=== PATIENT | male | born 1990 | race Caucasian/White ===

== ENCOUNTER 2018-03-31 21:45 | Outpatient (REF) | payer MEDICARE, MEDICAID, SELFPAY ==
[2018-03-31 22:06] LABS: Abs Immature Grans 0.01 k/cumm (0.0-0.09); Absolute Basophil Count 0.03 k/cumm (0.0-0.2); Absolute Eosinophil Count 0.11 k/cumm (0.0-0.7); Absolute Monocyte Count 0.66 k/cumm (0.11-0.7); Absolute Neutrophil Count 4.09 k/cumm (1.2-6.7); Basophils % 0.4; Eosinophils % 1.6; HGB 15.2 g/dL (13.5-17.5); Immature Grans % 0.1; Mean Corp. HGB Concentration 33.8 g/dL (32.0-36.0); Mean Corpuscular Hemoglobin 31.1 pg (27.0-33.0); Mean Platelet Volume 11.4 fL (8.0-11.0); Monocytes % 9.6; Neutrophils % 59.3; Platelet Count 242 x1000/uL (130-400); RBC 4.89 m/cumm (4.50-6.00); RBC Distribution Width 12.2 % (11.8-14.1)
[2018-03-31 22:37] LABS: ALT 55 U/L (12-78); AST 24 U/L (15-37); Albumin 3.7 g/dL (3.4-5.0); Alkaline Phosphatase 64 U/L (46-116); Anion Gap 8.5 mmol/L (3-11); BUN 7 mg/dL (7-18); Bilirubin, Total 0.4 mg/dL (0.2-1.0); CO2 26.5 mmol/L (21.0-32.0); CREATININE 0.81 mg/dL (0.70-1.30); Calcium 8.8 mg/dL (8.5-10.1); Chloride 105 mmol/L (98-107); Glucose 73 mg/dL (70-100); Potassium 4.5 mmol/L (3.5-5.1); Sodium 140 mmol/L (136-145); Total Protein 7.1 g/dL (6.4-8.2)
[2018-04-02 13:23] LABS: Hepatitis C Ab w Rflx HCV PCR Reactive (NEGAT)
== END 2018-03-31 22:05 ==
LOC: NCHCN 21:45
PROVIDERS: PCP Internal Medicine; Referring Provider Internal Medicine; Visit Provider Internal Medicine
DX: B19.20 Unspecified viral hepatitis C without hepatic coma (principal); F11.21 Opioid dependence, in remission
CPT/HCPCS: 80053; 86803; 85025; 87521; 87522

== ENCOUNTER 2018-04-17 08:25 | Emergency (ER) | payer MEDICARE, MEDICAID, SELFPAY ==
[2018-04-17] VITALS (7 sets, daily range): BP systolic 122–130; BP diastolic 66–99; PULSE 80–93; RESP 1–18; TEMP 36.6–37.1; O2SAT 95–98
[2018-04-17] MEDS: predniSONE 20 MG TAB 60 MG (08:40)
[2018-04-17] MEDS: Albuterol/Ipratropium 3 ML UPD VIAL (08:40)
--- NOTE | 2018-04-17 08:43 | ED.GENADUL_ITS ---
Discharge Plan Disposition Patient Disposition: HOME Condition: Improving Discharge Details Chief Complaint: RespSymp Clinical Impression: Acute bronchitis Primary Care Provider: Talon Watt ED Provider: Kami Fleming Home Meds and New Rx's Prescriptions: New prednisone 50 mg tablet 50 mg PO DAILY 5 Days Qty: 5 RF: 0 azithromycin [Zithromax Z-Dipak] 250 mg tablet See Label Instructions .ROUTE .COMPLEX Qty: 6 RF: 0 benzonatate [Tessalon Perles] 100 mg capsule 100 mg PO TID PRN (Reason: cough) Qty: 10 RF: 0 Continue ibuprofen [Ibuprofen IB] 200 mg Tablet 600 mg PO QID PRNRF: 0 Discharge Instructions Instructions: Acute Bronchitis (ED) Additional Instructions: Alternate Tylenol and Motrin as needed and directed for pain. Take the steroids until finished. Use the inhaler and cough medicine as needed and directed. If you have no improvement or worsening of symptoms in the next 2-3 days, you may start the antibiotics. Follow-up with your primary care doctor in 1 week for reevaluation. Return to the emergency department with any worsening or new concerning symptoms. Discharge Data Discharge Physician: Kami Fleming Medical Decision Making 28-year-old male who presents with cough and chest congestion with shortness of breath for the past 3 days. Denies known fever. Patient appears nontoxic, airway intact and speaking in full sentences. Oxygen saturation 93-95% on room air. Afebrile. He has minimal scattered wheezing with rhonchi throughout. No evidence of findings on exam consistent with strep. Consistent with bronchitis. Will give a neb treatment and a dose of p.o. steroids and reassess. 0905 -- Pt states he feels better but still with some shortness of breath. Nurse states after duoneb, pt asked for food and drink. Breath sounds improved. Will give another neb. 0955 --patient states he feels better and is requesting to go home. We will send home with an inhaler. Will give prescription for prednisone, Tessalon Perles. Discussed with patient that this is likely viral and if no relief with steroids and cough medicine over the next 2-3 days, he may start the prescription for Zithromax. He is instructed on the importance of quitting smoking as this will cause his illness to persist or worsen. Instructed to follow-up with primary care doctor in 1 week for reevaluation and to return here immediately if worse. HPI General Mode of arrival: ambulatory . Date/Time Provider Initiated Documentation: 04/17/18 08:41 . Limitations to Documentation: no limitations . Information obtained by: patient . HPI Narrative: Patient is a 28-year-old male who presents to the ED with complaint of cough with chest congestion for the past 3 days. Patient states he has been coughing up phlegm but he is unsure of the color. He also admits to wheezing, shortness of breath and sore throat. He denies fever, nasal congestion, facial pain, neck pain, leg pain, leg swelling, recent travel or recent surgeries. Patient states he has been taking ibuprofen and Tylenol with some relief, but none today. He used a nebulizer treatment of his friends last night but without relief. He admits to occasional headache but none at present. He states he has been drinking well but eating less than usual. Past medical history: Anxiety Surgical history: Facial reconstruction due to dog bite Social history: Smokes tobacco, Smokes marijuana daily Meds: None Allergies: Bee sting, NKDA PCP: Dr. Watt Related Data Home Medications Medication Instructions Recorded Confirmed azithromycin [Zithromax Z-Dipak] See Label Instructions .ROUTE 04/17/18 .COMPLEX #6 tab benzonatate [Tessalon Perles] 100 mg PO TID PRN #10 cap 04/17/18 ibuprofen [Ibuprofen IB] 600 mg PO QID PRN 04/17/18 04/17/18 prednisone 50 mg PO DAILY 5 Days #5 tab 04/17/18 Previous Rx's Medication Instructions Recorded azithromycin [Zithromax Z-Dipak] See Label Instructions .ROUTE 04/17/18 .COMPLEX #6 tab benzonatate [Tessalon Perles] 100 mg PO TID PRN #10 cap 04/17/18 prednisone 50 mg PO DAILY 5 Days #5 tab 04/17/18 Allergies Allergy/AdvReac Type Severity Reaction Status Date / Time venom-honey bee Allergy Severe Anaphylaxsi Unverified 04/17/18 08:44 [bee venom (honey bee)] s General Stated Complaint: RespSymp MELANIE: 3 Review of Systems Review of Systems All systems reviewed & are unremarkable except as noted in HPI and below Constitutional Denies chills, Denies excessive sweating, Denies fatigue, Denies fever(s), Denies weakness and Denies weight loss Eyes Reports system reviewed and no additional complaints, except as docu and Denies blurry vision ENT Denies vertigo, Denies dizziness, Denies otalgia, Denies nasal congestion, Reports sore throat and Denies throat swelling Cardiovascular Denies chest pain, Denies syncope, Denies rapid heart rate and Reports dyspnea Respiratory Reports chest congestion, Reports cough and Reports dyspnea Gastrointestinal Denies abdominal pain, Denies diarrhea and Denies vomiting Genitourinary Denies hematuria, Denies dysuria and Denies flank pain Musculoskeletal Denies back pain and Denies joint swelling Integumentary/Breasts Denies lesions and Denies rash Neurologic Denies behavioral changes, Denies confusion, Denies vertigo, Denies dizziness, Denies syncope and Denies weakness Psychiatric Denies behavioral changes, Denies confusion and Denies depression Endocrine Denies excessive sweating and Denies fatigue Hematologic/Lymphatic Denies easy bruising and Denies lymphadenopathy Allergic/Immunologic Denies throat swelling PFS Social History Smoking/Tobacco Use Status: Current every day Exam Const General: cooperative and healthy appearing Orientation: alert and awake HENNE Head: normal to inspection Ears: hearing grossly normal bilaterally, external ears normal and TM's normal bilaterally General nose exam: external nose normal Face and sinus: normal facial exam and no sinus tenderness Mouth: oral mucosae normal Teeth and gingiva: dentition normal Throat: posterior oropharynx normal, uvula midline and no peritonsillar masses Eyes General: appearance normal, both eyes and all related structures Eyelids: eyelids normal Pupils: PERRL EOM: EOM intact bilaterally Neck Neck: normal visual inspection Lymphatic: no lymphadenopathy noted Chest Chest: normal inspection of the chest Resp Effort & Inspection: normal respiratory effort, able to speak in complete sentences, no respiratory distress, no retractions, no stridor and no use of accessory muscles Auscultation: rhonchi and wheezes scattered wheezes Cardio Rate: regular rate Rhythm: regular rhythm GI Inspection: normal to inspection Palpation: soft, not firm, no guarding, no hepatosplenomegaly, no masses and nontender Auscultation: normal bowel sounds Skin General skin exam: no rashes or lesions noted Neuro General: alert and awake Cognition: normal cognition Speech: speech normal Gait: normal gait Motor: muscle tone normal throughout Sensory Exam: no sensory deficits noted Extrem General: normal to inspection, full ROM, normal capillary refill, no calf tenderness and no edema Psych Appearance: grossly normal Mental Status: mental status grossly normal Speech and Movement: speech and movement normal Affect: normal affect Thought Process: normal Course Vital Signs Temperature 97.9 F 04/17/18 08:31 Pulse 93 H 04/17/18 08:31 Respiratory Rate 18 04/17/18 08:31 Blood Pressure 122/99 H 04/17/18 08:31 Pulse Oximetry 95 04/17/18 08:31 Temperature 97.9 F 04/17/18 08:31 Temperature Source Temporal Artery Scan 04/17/18 08:31 Pulse 93 H 04/17/18 08:31 Respiratory Rate 18 04/17/18 08:31 Respiratory Effort 04/17/18 08:35 Blood Pressure 122/99 H 04/17/18 08:31 Blood Pressure Position Sitting 04/17/18 08:31 Pulse Oximetry 95 04/17/18 08:31 Oxygen Delivery Method Room Air 04/17/18 08:31 Oxygen Flow Rate 0 04/17/18 08:31 Pain Level 8 04/17/18 08:31
[2018-04-17] MEDS: Albuterol 2.5 MG/3 ML INH SOLN VIAL UPD (09:10)
[2018-04-17] MEDS: Albuterol HFA 8 GM 60 PUFF INH IH (10:11)
[2018-04-17] MEDS: Inhaler, Assist Device 1 EACH MC (10:11)
== END 2018-04-17 10:20 | disposition home or self-care (01) ==
PROVIDERS: Emergency Provider Physician Assistant; PCP Internal Medicine
DX: J20.9 Acute bronchitis, unspecified (principal); F17.210 Nicotine dependence, cigarettes, uncomplicated
CPT/HCPCS: 94640; 99284; J7512; J7613; J7620

== ENCOUNTER 2018-06-06 14:05 | Emergency (ER) | payer MEDICARE, MEDICAID, SELFPAY ==
[2018-06-06] VITALS (42 sets, daily range): BP systolic 123–149; BP diastolic 61–93; PULSE 74–129; RESP 18–24; TEMP 37.3–38.6; O2SAT 94–100
--- NOTE | 2018-06-06 14:13 | DI.COMBO_ITS ---
SYMPTOM/DIAGNOSIS: RT LOWER CHEST PAIN, RUQ AND RLQ PAIN FRONTAL AND LATERAL CHEST: Comparison is made with 05/09/10. Heart size and pulmonary vasculature are within normal limits. The left lung is clear. There is an opacity seen in the right mid lung. There is also a small right pleural effusion. There is elevation of the right hemidiaphragm. The bones are intact. IMPRESSION: Right mid lung opacity which may represent pneumonia. A follow up chest xray to document complete resolution is recommended. Small right pleural effusion. ABDOMEN AND PELVIC CT: CT scan of the abdomen and pelvis was performed following the uneventful administration of intravenous contrast material. There are infiltrates seen in the right mid lung and the right lower lobe. There is a small right pleural effusion. The liver, spleen, pancreas, gallbladder, bile ducts and adrenal glands are unremarkable. The kidneys, ureters and bladder are unremarkable. The reproductive organs are unremarkable as visualized. The bowel shows no evidence of obstruction or inflammation. There is a normal appendix present. No significant abdominal or pelvic adenopathy, ascites or pneumoperitoneum is present. The abdominal aorta is of normal caliber. No acute osseous abnormality is identified. IMPRESSION: Right lung infiltrate which may represent pneumonia. Small right pleural effusion.
--- NOTE | 2018-06-06 14:26 | ED.GENADUL_ITS ---
Discharge Plan Disposition Patient Disposition: HOME Condition: Good Discharge Details Chief Complaint: Abd Prob Clinical Impression: Community acquired pneumonia, Acute dehydration, Fever, Rib pain on right side Primary Care Provider: Talon Watt ED Provider: Marcellus Cotton Home Meds and New Rx's Prescriptions: New azithromycin 250 mg tablet 250 mg PO DAILY 4 Days Qty: 4 RF: 0 acetaminophen [Mapap Extra Strength] 500 MG tablet 1,000 mg PO Q6H 5 Days Qty: 60 RF: 0 lidocaine [Lidoderm] 1 PATCH patch 1 patch Topical Q24H Qty: 4 RF: 0 ibuprofen [Motrin IB] 200 MG tablet 600 mg PO Q6H 5 Days Qty: 60 RF: 0 Discharge Instructions Instructions: Fever in Adults (ED), Community Acquired Pneumonia (ED) Additional Instructions: Please take medications as directed. Please follow-up immediately with your primary care provider for reassessment. If you notice any worsening of your symptoms, or any new symptoms such as vomiting, diarrhea, fever, chills, shortness of breath, chest pain, numbness, weakness, or fainting , please return immediately to the emergency department for reevaluation. Please follow up with your primary care provider as soon as possible for reassessment and reevaluation. As always, it was a pleasure participating in your medical care today. Referrals: Talon Watt MD [Primary Care Provider] - Discharge Data Discharge Date/Time-TO BE ENTERED AT DEPARTURE: 06/06/18 18:26 Medical Decision Making This is a pleasant 28-year-old male who presents for right upper quadrant abdominal pain for the last 2 weeks, but notably worsening over the last 2 days. He has no associated vomiting or diarrhea. Tenderness is notable for the right lower and right upper quadrants as well as over the right ribs. Voluntary guarding is notable on exam. Vital signs demonstrate fever. No significant tachycardia. He is an IV drug user. No murmurs are auscultated on exam or evidence of Osler nodes or Janeway lesions. We will perform a laboratory evaluation, hydrate the patient, control his fever, get a CT scan to evaluate for any acute abdominal process. Differential is broad and includes hepatic abscess, gallbladder pathology, atypical appendicitis. EKG 14: 24 Rate 82, intervals normal, sinus rhythm, no ST elevations or depressions, inverted T wave in V1, and lead III. No prominent Q waves, no other significant abnormalities. CT IMPRESSION: 1. Areas of infiltrate within the inferior right lung with small right pleural fluid collection. 2. No acute intra-abdominal or pelvic process. CXR IMPRESSION: Infiltrate within the lateral right mid lung zone with small right pleural fluid collection. CT scan and chest x-ray have returned and demonstrates evidence of infiltrate in the right midlung zone. This is near the location of his previous scar from his rib removal for his reconstructive surgery. The patient's pain is notably improved at this time, and on reassessment with more careful delineation it appears that his pain is not actually in the right upper abdomen but actually more so in the right chest over where the scar is. This correlates well with a CT and x-ray findings. It also makes sense with his lack of vomiting, diarrhea , and ability to tolerate p.o. well. Although the patient's initial lactate was elevated a repeat lactate has plummeted down to a very normal 0.7. Patient does have an elevated white count, a small amount of left shift, but no bandemia. Patient's vital signs are very reassuring, his fever has improved, he still shows no signs of tachycardia, with a normal blood pressure normal O2 sats and normal respirations. We did get the patient up and ambulated him around the department and he continued to demonstrate normal vital signs. I feel at this time on reassessment his signs and symptoms correlate well with an atypical community-acquired pneumonia with his relative bradycardia in light of his fever, as well as his imaging studies findings. Patient was initially given broad-spectrum antibiotics here, atypical coverage was added here. With normal reassuring vital signs, notable improvement of his symptoms, complete resolution of his elevated lactate, otherwise benign laboratory workup I feel that he can be safely discharged home with close follow-up. We will give the patient a prescription for azithromycin, we discussed in length red flags for which to return. His curb 65 score is 0, and he is in the lowest risk group, with recommendation for outpatient management which I do think is reasonable. I discussed this plan with the patient he too agrees with like to go home rather than staying for admission. We discussed reasons for return the patient understands. I have extensively reviewed the treatment plan and discharge instructions with the patient and their family. I have addressed all patient concerns at this time. The patient and family was made aware of what symptoms to monitor for that would warrant a return to the emergency department. Discussed the plan with the patient and family, they demonstrate verbal understanding and agreement with our assessment and plan at this time. HPI General Date/Time Provider Initiated Documentation: 06/06/18 14:12 . HPI Narrative: This is a pleasant 28-year-old male with a past medical history of hepatitis C, IV illicit drug use, and facial reconstruction surgery after a dog bite as a young child, who presents today for evaluation of right upper quadrant abdominal pain. The patient states that for the last 2 weeks he has had a mild to moderate right upper quadrant abdominal pain. He has noticed that over the last 2 days ago that it is gotten progressively worse , it is now relatively severe. It is worsened with palpation, deep breathing, and movement. It is improved with heat, he has no associated symptoms of nausea vomiting or diarrhea. Last meal was last night which was [place] food. He denies any hematemesis, hematochezia, melena or acholic stool. Patient does admit to using needles regularly for IV drug use, most recent being within the last few days, he states that his needles are not always clean. Patient does admit to fever and chills at home. He denies any pain or symptoms like this in the past. He denies any significant abdominal surgeries. He denies any pertinent family history. He has no other complaints at this time. Related Data Home Medications Medication Instructions Recorded Confirmed acetaminophen [Mapap Extra 1,000 mg PO Q6H 5 Days #60 tab 06/06/18 Strength] azithromycin 250 mg PO DAILY 4 Days #4 tab 06/06/18 ibuprofen [Motrin Ib] 600 mg PO Q6H 5 Days #60 tab 06/06/18 lidocaine [Lidoderm] 1 patch TOPICAL Q24H #4 patch 06/06/18 Previous Rx's Medication Instructions Recorded acetaminophen [Mapap Extra 1,000 mg PO Q6H 5 Days #60 tab 06/06/18 Strength] azithromycin 250 mg PO DAILY 4 Days #4 tab 06/06/18 ibuprofen [Motrin Ib] 600 mg PO Q6H 5 Days #60 tab 06/06/18 lidocaine [Lidoderm] 1 patch TOPICAL Q24H #4 patch 06/06/18 Allergies Allergy/AdvReac Type Severity Reaction Status Date / Time venom-honey bee Allergy Severe Anaphylaxsi Unverified 06/06/18 14:16 [bee venom (honey bee)] s General Stated Complaint: Abd Prob MELANIE: 2 Review of Systems Review of Systems All systems reviewed & are unremarkable except as noted in HPI and below PFSH Social History Smoking/Tobacco Use Status: Current every day Exam Narrative Exam Narrative: 1.Const: Well-nourished, Well-developed, appearing stated age 2.Eyes: PERRL, no conjunctival injection, and symmetrical lids. 3.ENT: Notable previous scars over the face secondary to previous trauma. Moist MM. Neck: Symmetric, trachea midline, No thyromegaly. 4.CVS: +S1/S2, No murmurs is appreciated or gallops. Peripheral pulses 2+ and equal in all extremities. Brisk capillary refill in all extremities. 5.RESP: Unlabored respiratory effort, however secondary to his abdominal/rib pain he is taking short shallow breaths. Mild reproducible tenderness over his right ribs by the scar for his rib removal for his previous bone grafts. Clear to auscultation bilaterally except for minimal crackles on the right. 6.GI: Abdomen demonstrates voluntary guarding, mild to moderate tenderness in the right upper quadrant right lower quadrant. No significant guarding or rebound or tenderness for the left lower left upper quadrant. No hepatomegaly appreciable at this time. Bowel sounds are present but reduced. 7.MSK: Normocephalic/Atraumatic, Extremities w/o deformity or ttp No cyanosis or clubbing, Normal movement of all extremities. 8.Skin: Warm, Dry. No rashes or lesions. No evidence of Osler nodes or Janeway lesions 9.Neuro: office director II-XII grossly intact. Sensation grossly intact, no focal neurologic deficits. 10.Psych: (AAO) x3. Appropriate mood and affect Course Vital Signs Temperature 38.6 C H 06/06/18 14:10 Pulse 88 06/06/18 14:10 Respiratory Rate 24 06/06/18 14:10 Blood Pressure 149/83 H 06/06/18 14:10 Pulse Oximetry 100 06/06/18 14:10 Temperature 38.6 C H 06/06/18 14:10 Temperature Source Temporal Artery Scan 06/06/18 14:10 Pulse 88 06/06/18 14:10 Respiratory Rate 24 06/06/18 14:10 Respiratory Effort Non-Labored 06/06/18 14:14 Blood Pressure 149/83 H 06/06/18 14:10 Blood Pressure Position Sitting 06/06/18 14:10 Pulse Oximetry 100 06/06/18 14:10 Oxygen Delivery Method Room Air 06/06/18 14:10 Oxygen Flow Rate 0 06/06/18 14:10 Pain Level 8 06/06/18 14:10 Lab/Test Results Lab/Test Results: 06/06/18 14:13 Blood Blood Culture - Pending 06/06/18 14:13 Blood Blood Culture - Pending
[2018-06-06] MEDS: Normal Saline 1,000 ML 1000 ML IV ×2 (14:35→15:10)
[2018-06-06 14:43] LABS: Lactate-non-spesis 2.6 mmol/L (0.6-1.4)
[2018-06-06] MEDS: Ketorolac 30 MG/ML VIAL IVP (14:43)
[2018-06-06] MEDS: MORPHine 10 MG/ML VIAL 4 MG IVP (14:44)
[2018-06-06 14:48] LABS: Abs Immature Grans 0.03 k/cumm (0.0-0.09); Absolute Basophil Count 0.01 k/cumm (0.0-0.2); Basophils % 0.1; Eosinophils % 1.3; HCT 38.9 % (40.0-50.0); HGB 13.1 g/dL (13.5-17.5); Immature Grans % 0.2; Lymphocytes % 6.7; Mean Corp. HGB Concentration 33.7 g/dL (32.0-36.0); Mean Corpuscular Hemoglobin 31.2 pg (27.0-33.0); Mean Corpuscular Volume 92.6 fL (80-95); Mean Platelet Volume 10.6 fL (8.0-11.0); Monocytes % 7.1; Neutrophils % 84.6; Platelet Count 233 x1000/uL (130-400); RBC Distribution Width 12.4 % (11.8-14.1); White Blood Cell Count 14.27 k/cumm (4.4-10.8)
[2018-06-06 14:53] LABS: Absolute Eosinophil Count 0.19 k/cumm (0.0-0.7); Absolute Lymphocyte Count 0.96 k/cumm (1.2-3.4); Absolute Monocyte Count 1.01 k/cumm (0.11-0.7); Absolute Neutrophil Count 12.07 k/cumm (1.2-6.7)
[2018-06-06 15:02] LABS: INR 1.1 (1.0-3.5); PTT Activated 28.8 sec (21.0-31.4)
[2018-06-06 15:11] LABS: Bilirubin Small (Negative); Blood Negative (Negative); Clarity Clear; Glucose Negative (Negative); Ketones Trace mg/dL (Negative); Leukocyte Esterase Negative (Negative); Nitrite Negative (Negative); Specific Gravity 1.025 (1.005-1.025); Urobilinogen >=8.0 EU/dL (Up TO 0.2)
[2018-06-06 15:15] LABS: ALT 39 U/L (12-78); AST 32 U/L (15-37); Alkaline Phosphatase 73 U/L (46-116); Anion Gap 7.2 mmol/L (3-11); BUN 6 mg/dL (7-18); Bilirubin, Direct 0.39 mg/dL (0.00-0.20); CO2 27.8 mmol/L (21.0-32.0); CREATININE 0.87 mg/dL (0.70-1.30); Chloride 98 mmol/L (98-107); Glucose 152 mg/dL (70-100); Potassium 3.9 mmol/L (3.5-5.1); Sodium 133 mmol/L (136-145); Total Protein 7.5 g/dL (6.4-8.2)
[2018-06-06 15:16] LABS: Lipase 94 U/L (73-393); Troponin I < 0.02 ng/mL (0.00-0.06)
[2018-06-06 15:21] LABS: Bacteria Few HPF (Negative); C & S Indicated? No; Casts Negative LPF (Negative); Crystals Negative HPF (Negative); Epithelial Cells Rare HPF (Negative); Mucus Moderate (Negative); Other Cells Negative (Negative); RBC Negative (0-2); WBC 0-2 HPF (0-5)
[2018-06-06] MEDS: Omnipaque 350 MG/ML 100 ML BTL IJ (15:28)
[2018-06-06] MEDS: PIPERACILLIN/TAZO 3.375 GM in Normal Saline 50 ML IVPB (15:36)
--- NOTE | 2018-06-06 16:03 | DI.VRAD_ITS ---
EXAM: CT Abdomen and Pelvis With Intravenous Contrast EXAM DATE/TIME: 06/06/2018 2:19 PM CLINICAL HISTORY: 28 years old, male; Pain; Abdominal pain; Localized; Right; Patient HX: Rlq and ruq pain, severe, no vomiting TECHNIQUE: Axial computed tomography images of the abdomen and pelvis with intravenous contrast. Coronal and sagittal reformatted images were created and reviewed. COMPARISON: No relevant prior studies available. FINDINGS: Lower thorax: Areas of infiltrate within the inferior right lung with small right pleural fluid collection. Minimal posterior right lower lobe compressive atelectasis. ABDOMEN: Liver: Normal. No mass. Gallbladder and bile ducts: Normal. No calcified stones. No ductal dilation. Pancreas: Normal. No ductal dilation. Spleen: Normal. No splenomegaly. Adrenals: Normal. No mass. Kidneys and ureters: Normal. No hydronephrosis. Stomach and bowel: Normal. No obstruction. No mucosal thickening. Appendix: Normal appendix. PELVIS: Bladder: Unremarkable as visualized. Reproductive: Unremarkable as visualized. ABDOMEN and PELVIS: Intraperitoneal space: Normal. No free air. No significant fluid collection. Bones/joints: No acute fracture. No dislocation. Soft tissues: Unremarkable. Vasculature: Normal. No abdominal aortic aneurysm. Lymph nodes: Normal. No enlarged lymph nodes. IMPRESSION: 1. Areas of infiltrate within the inferior right lung with small right pleural fluid collection. 2. No acute intra-abdominal or pelvic process. Dictated and Authenticated by: Jignesh De La Torre MD. Ordering:VICKI MARTIN MD
--- NOTE | 2018-06-06 16:04 | DI.VRAD_ITS ---
EXAM: XR Chest, 2 Views EXAM DATE/TIME: 06/06/2018 2:20 PM CLINICAL HISTORY: 28 years old, male; Chest pain; Right-sided chest pain; Right lower chest pain TECHNIQUE: XR of the chest, 2 views. COMPARISON: No relevant prior studies available. FINDINGS: Lungs: The left lung is clear. Infiltrate within the lateral right mid lung zone. Pleural space: Small right pleural fluid collection. Heart/Mediastinum: Unremarkable. No cardiomegaly. Bones/joints: Unremarkable. IMPRESSION: Infiltrate within the lateral right mid lung zone with small right pleural fluid collection. Dictated and Authenticated by: Jignesh De La Torre MD. Ordering:VICKI MARTIN MD
[2018-06-06] MEDS: Normal Saline 1,000 ML 150 ML IV (16:07)
[2018-06-06] MEDS: VANCOMYCIN 1,500 MG in Normal Saline 500 ML 333.3333 MG IVPB (16:08)
[2018-06-06] MEDS: Azithromycin 250 MG TAB 500 MG PO (17:01)
[2018-06-06 17:26] LABS: Lactate-non-spesis 0.7 mmol/L (0.6-1.4)
[2018-06-06] MEDS: Lidocaine 5% Patch 1 PATCH (18:20)
== END 2018-06-06 18:26 | disposition home or self-care (01) ==
PROVIDERS: Emergency Provider Student in an Organized Health Care Education/Training Program; PCP Internal Medicine
DX: R10.11 Right upper quadrant pain (principal); R07.81 Pleurodynia; J18.9 Pneumonia, unspecified organism; E86.0 Dehydration; F11.20 Opioid dependence, uncomplicated; F17.210 Nicotine dependence, cigarettes, uncomplicated
CPT/HCPCS: 36415; 80053; 83690; 87040; 93005; 96361; 96365; 96366; 96367; 96375; 99285; 71046; 74177; 81003; 81015; 82248; 83605; 84484; 85025; 85610; 85730; 93010; J1885; J2270; J2543; J3490

== ENCOUNTER 2018-11-27 09:08 | Outpatient (CLI) | payer MEDICARE, MEDICAID, SELFPAY ==
[2018-11-27 10:33] LABS: ALT 14 U/L (12-78); AST 11 U/L (15-37); Albumin 3.6 g/dL (3.4-5.0); Alkaline Phosphatase 95 U/L (46-116); Anion Gap 11.2 mmol/L (3-11); BUN 9 mg/dL (7-18); Bilirubin, Total 0.3 mg/dL (0.2-1.0); CO2 27.8 mmol/L (21.0-32.0); CREATININE 0.97 mg/dL (0.70-1.30); Chloride 102 mmol/L (98-107); Glucose 100 mg/dL (70-100); Potassium 4.2 mmol/L (3.5-5.1); Sodium 141 mmol/L (136-145); Total Protein 7.2 g/dL (6.4-8.2)
[2018-11-30 14:30] LABS: HCV RNA Detection Quantitative Undetected IU/mL (UNDECT)
== END 2018-11-27 09:28 ==
PROVIDERS: PCP Internal Medicine; Visit Provider Physician Assistant Medical
DX: B18.2 Chronic viral hepatitis C (principal)
CPT/HCPCS: 36415; 80053; 87522

== ENCOUNTER 2019-01-08 15:46 | Outpatient (REF) | payer MEDICARE, MEDICAID, SELFPAY ==
[2019-01-08 21:31] LABS: ALT 14 U/L (12-78); AST 13 U/L (15-37); Albumin 3.6 g/dL (3.4-5.0); Alkaline Phosphatase 72 U/L (46-116); Bilirubin, Total 0.3 mg/dL (0.2-1.0)
[2019-01-08 21:42] LABS: Bilirubin, Direct 0.09 mg/dL (0.00-0.20)
[2019-01-11 13:29] LABS: HCV RNA Detection Quantitative Undetected IU/mL (UNDECT)
== END 2019-01-08 16:06 ==
LOC: NCHCN 15:46
PROVIDERS: PCP Internal Medicine; Visit Provider Internal Medicine
DX: B19.20 Unspecified viral hepatitis C without hepatic coma (principal); F90.9 Attention-deficit hyperactivity disorder, unspecified type
CPT/HCPCS: 80076; 87522

== ENCOUNTER 2019-07-22 21:59 | Outpatient (REF) | payer MEDICARE, MEDICAID, SELFPAY ==
[2019-07-28 05:12] LABS: Amphetamine Negative ng/mL (Cutoff: 25); Amphetamines Interpretation Negative.; MDA (Ecstasy Metabolite) Negative ng/mL (Cutoff: 25); MDMA (Ecstasy) Negative ng/mL (Cutoff: 25); Methamphetamine Negative ng/mL (Cutoff: 25); Phentermine Negative ng/mL (Cutoff: 25); Pseudoephedrine/Ephedrine Negative ng/mL (Cutoff: 25)
[2019-08-03 13:45] LABS: Methylphenidate NEGATIVE; Ritalinic Acid NEGATIVE
== END 2019-07-22 22:19 ==
LOC: NCHCN 21:59
PROVIDERS: PCP Internal Medicine; Visit Provider Internal Medicine
DX: F11.10 Opioid abuse, uncomplicated (principal); Z79.899 Other long term (current) drug therapy
CPT/HCPCS: 80324; 80360

== ENCOUNTER 2019-09-16 18:53 | Outpatient (REF) | payer MEDICARE, MEDICAID, SELFPAY ==
[2019-09-16 20:40] LABS: ALT 12 U/L (16-63); AST 13 U/L (15-37); Albumin 3.7 g/dL (3.4-5.0); Alkaline Phosphatase 61 U/L (46-116); Anion Gap 7.4 mmol/L (3-11); BUN 6 mg/dL (7-18); Bilirubin, Total 0.4 mg/dL (0.2-1.0); CO2 28.6 mmol/L (21.0-32.0); CREATININE 0.86 mg/dL (0.70-1.30); Calcium 8.2 mg/dL (8.5-10.1); Chloride 104 mmol/L (98-107); Glucose 83 mg/dL (74-106); NT-proBNP 157 pg/mL (<300); Potassium 4.5 mmol/L (3.5-5.1); Sodium 140 mmol/L (136-145); Total Protein 6.9 g/dL (6.4-8.2)
== END 2019-09-16 19:13 ==
LOC: NCHCN 18:53
PROVIDERS: PCP Internal Medicine; Visit Provider Internal Medicine
DX: R06.89 Other abnormalities of breathing (principal); R60.9 Edema, unspecified; F90.9 Attention-deficit hyperactivity disorder, unspecified type
CPT/HCPCS: 80053; 83880

== ENCOUNTER 2020-01-14 21:32 | Emergency (ER) | payer MEDICARE, MEDICAID, SELFPAY ==
[2020-01-14 21:41] VITALS: BP 136/95; PULSE 74; RESP 18; TEMP 36.8; O2SAT 97
--- NOTE | 2020-01-14 21:52 | W.ED.GENAD ---
Discharge Plan Disposition Patient Disposition: HOME Condition: Stable Discharge Details Chief Complaint: Allergic Clinical Impression: Allergic reaction to bee sting Primary Care Provider: Talon Watt ED Provider: [facility] Home Meds and New Rx's Prescriptions: New epinephrine 0.3 mg/0.3 mL auto-injector 0.3 mg IM ONCE PRN (Reason: anaphylaxis) Qty: 1 RF: 0 Continued methylphenidate HCl [Ritalin] 20 mg Tablet 40 mg PO DAILY RF: 0 methadone 40 mg Tablet,Soluble 65 mg PO DAILY RF: 0 Discharge Instructions Instructions: Insect Bite or Sting (ED), General Allergic Reaction (ED) Additional Instructions: He may take Benadryl 1 or 2 tablets every 6-8 hours as needed for itching and/or hives, can take Pepcid [id number] once daily for 5 days. Use EpiPen if any worsening shortness of breath or trouble breathing. Follow up with primary care provider in 3-5 days. Return to ED sooner if any worsening or concerns. Increase oral fluids. Please take Tylenol or Ibuprofen with food every 4-6 hours as needed for pain and swelling. You may apply cold compresses or ice pack as needed. Referrals: Talon Watt MD [Primary Care Provider] - Medical Decision Making 29-year-old male presents to the ER after a hornet sting to the right shoulder approximately 30 minutes prior to arrival. 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 Patient denies having an EpiPen at home. On initial exam he speaking in full sentences no increased work of breathing no respiratory distress. He reports that he has little throat irritation. He does have erythema noted to his right shoulder with a central puncture wound. Positive pruritus. Lungs are clear to auscultation bilaterally no wheezes noted, uvula is midline and nonswollen. No stridor. 7: At this time Benadryl 50 mg p.o. ordered, Pepcid 40 mg p.o., and prednisone 60 mg p.o. ordered. Patient is satting 9799% on room air, is non-tachycardic at 74. We will continue to observe for improvement. Plan is to discharge patient with an EpiPen as needed. 2300: Patient reevaluation still hemodynamically stable, no additional complaints at this time vital signs are stable. Redness is decreased to the right shoulder. Patient discharged with instructions to take 1 or 2 Benadryl every 6-8 hours, Pepcid [id number] and prescription written for EpiPen as needed for anaphylactic reaction. Patient verbalized understanding. HPI General Mode of arrival: ambulatory. Date/Time Provider Initiated Documentation: 01/14/20 21:48. Limitations to Documentation: no limitations. Information obtained by: patient. HPI Narrative: 29-year-old male presents to the ER after a hornet sting to the right shoulder approximately 30 minutes prior to arrival. 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 Patient denies having an EpiPen at home. On initial exam he speaking in full sentences no increased work of breathing no respiratory distress. He reports that he has little throat irritation. He does have erythema noted to his right shoulder with a central puncture wound. Positive pruritus. Lungs are clear to auscultation bilaterally no wheezes noted, uvula is midline and nonswollen. No stridor. Related Data Home Medications Medication Instructions Recorded Confirmed epinephrine 0.3 mg IM ONCE PRN #1 each 01/14/20 methadone 65 mg PO DAILY 01/14/20 01/14/20 methylphenidate HCl [Ritalin] 40 mg PO DAILY 01/14/20 01/14/20 Previous Rx's Medication Instructions Recorded epinephrine 0.3 mg IM ONCE PRN #1 each 01/14/20 Allergies Allergy/AdvReac Type Severity Reaction Status Date / Time venom-honey bee Allergy Severe Anaphylaxsi Unverified 01/14/20 21:45 [bee venom (honey bee)] s General Stated Complaint: Allergic MELANIE: 3 Review of Systems Narrative: Constitutional: Negative for weight loss, alert and oriented, well groomed, normal body habitus, appears comfortable. HEENT: Denies trauma, headaches, blurry vision, nasal discharge, sore throat, trouble swallowing. Chest: Denies chest pain, palpitations, irregular rhythm, hypertension. Respiratory: Denies Shortness of breath, cough, hemoptysis. GI: Denies abdominal pain, nausea, vomiting, diarrhea, constipation. : Denies dysuria, hematuria, flank pain, rectal bleeding. Neuro: Denies dizziness, blurry vision, weakness, syncope, headache or facial numbness. Hematologic: Denies easy bruising, intolerance to heat or cold, hair loss. [facility] Social History Smoking/Tobacco Use Status: Current every day Tobacco Type: cigarettes Alcohol Intake: never Drug use: Daily Substance use type: former substance user and marijuana Do you feel safe at home: Yes Do you feel safe in your relationship?: Yes Exam Narrative Exam Narrative: Constitutional: Alert and oriented x3. Appears stated age. Normal body habitus. Head: Normocephalic, does have old healed scars noted to his right parietal and frontal scalp and the right side of his nose. Eyes: Pupils PERRLA, Red reflex noted, EOM's intact. Eyelids symmetrical without lesions, discharge, or swelling. ENT: Bilateral TM's WNL, External ear normal to inspection, no mastoid TTP, swelling, or erythema, Nasal turbinates WNL, no nasal discharge. Normal dentition, Posterior pharynx WNL, uvula midline, tonsils are 1+ bilaterally, no exudate. Chest: RRR, Normal S1, S2, distal pulses intact. Resp: Lungs clear to auscultation bilaterally, no wheezes, rales, or rhonchi. No stridor. Musculoskeletal: Normal gait, 5/5 strength to all four extremities. Skin: Right lateral shoulder small puncture wound noted consistent with a venomous insect sting with surrounding erythema measuring approximately 6 cm in diameter. Capillary refill less than 2 sec. Neurologic: Cranial nerves II-XII intact. Alert and oriented x 3. DTR's intact. Hematologic/Lymphatic: No ecchymosis, no lymphadenopathy. Course Vital Signs Vital signs: Vital Signs Temperature 36.8 C 01/14/20 21:41 Pulse 74 01/14/20 21:41 Respiratory Rate 18 01/14/20 21:41 Blood Pressure 136/95 H 01/14/20 21:41 Pulse Oximetry 97 01/14/20 21:41 Temperature 36.8 C 01/14/20 21:41 Temperature Source Oral 01/14/20 21:41 Pulse 74 01/14/20 21:41 Respiratory Rate 18 01/14/20 21:41 Respiratory Effort 01/14/20 21:45 Respiratory Pattern Normal 01/14/20 21:45 Blood Pressure 136/95 H 01/14/20 21:41 Pulse Oximetry 97 01/14/20 21:41 Oxygen Delivery Method Room Air 01/14/20 21:41 Oxygen Flow Rate 0 01/14/20 21:41
[2020-01-14] MEDS: diphenhydrAMINE 25 MG CAP 50 MG PO (21:56)
[2020-01-14] MEDS: predniSONE 20 MG TAB 60 MG PO (21:57)
[2020-01-14] MEDS: Famotidine 20 MG TAB 40 MG PO (21:57)
[2020-01-14 23:02] VITALS: BP 125/94; PULSE 64; RESP 16; TEMP 36.7; O2SAT 99
== END 2020-01-14 23:10 | disposition home or self-care (01) ==
PROVIDERS: Emergency Provider Registered Nurse Emergency; PCP Internal Medicine
DX: T63.451A Toxic effect of venom of hornets, accidental (unintentional), initial encounter (principal); L29.8 Other pruritus; J02.9 Acute pharyngitis, unspecified; Z91.030 Bee allergy status
CPT/HCPCS: 99283; J7512

== ENCOUNTER 2020-02-28 16:09 | Outpatient (REF) | payer MEDICARE, MEDICAID, SELFPAY ==
[2020-02-28 20:56] LABS: HCT 43.4 % (40.0-50.0); HGB 14.4 g/dL (13.5-17.5); MCH 30.9 pg (27.0-33.0); MCHC 33.2 % (32.0-36.0); MCV 93.1 fL (80-95); Platelet Count 223 10^3/uL (130-400); RBC 4.66 10^6/uL (4.36-5.78); RDW 11.6 % (11.8-14.1); RDW-SD 39.6 fL; WBC 6.44 10^3/uL (4.4-10.8)
[2020-02-28 21:17] LABS: ALT 12 U/L (16-63); AST 12 U/L (15-37); Albumin 3.7 g/dL (3.4-5.0); Alkaline Phosphatase 52 U/L (46-116); Anion Gap 6.3 mmol/L (3-11); BUN 7 mg/dL (7-18); Bilirubin, Total 0.4 mg/dL (0.2-1.0); CO2 28.7 mmol/L (21.0-32.0); Chloride 104 mmol/L (98-107); Glucose 89 mg/dL (74-106); Potassium 4.3 mmol/L (3.5-5.1); Sodium 139 mmol/L (136-145); Total Protein 7.1 g/dL (6.4-8.2)
[2020-03-01 17:06] LABS: Hepatitis C Ab w Rflx HCV PCR Reactive (Negative)
[2020-03-02 14:52] LABS: HCV RNA Qualitative Undetected (Undetected)
== END 2020-02-28 16:29 ==
LOC: NCHCN 16:09
PROVIDERS: PCP Internal Medicine; Visit Provider Internal Medicine
DX: R11.2 Nausea with vomiting, unspecified (principal); F90.9 Attention-deficit hyperactivity disorder, unspecified type; Z86.19 Personal history of other infectious and parasitic diseases; Z11.59 Encounter for screening for other viral diseases
CPT/HCPCS: 80053; 85027; 86803; 87522

== ENCOUNTER 2020-05-22 16:29 | Outpatient (REF) | payer MEDICARE, MEDICAID, SELFPAY ==
[2020-05-29 08:08] LABS: Methylphenidate 53 ng/mL; Ritalinic Acid 1247 ng/mL
== END 2020-05-22 16:49 ==
LOC: NCHCN 16:29
PROVIDERS: PCP Internal Medicine; Visit Provider Internal Medicine
DX: F11.11 Opioid abuse, in remission (principal)
CPT/HCPCS: 80360

== ENCOUNTER 2021-12-04 18:33 | Outpatient (REF) | payer MEDICARE, MEDICAID, SELFPAY ==
[2021-12-10 08:24] LABS: Methylphenidate 133 ng/mL (Cutoff: 10); Ritalinic Acid 1092 ng/mL (Cutoff: 50)
== END 2021-12-04 18:34 | disposition home or self-care (01) ==
LOC: NCHCN 18:33
PROVIDERS: PCP Internal Medicine; Visit Provider Internal Medicine
DX: F11.11 Opioid abuse, in remission (principal); Z51.81 Encounter for therapeutic drug level monitoring
CPT/HCPCS: 80360

== ENCOUNTER 2022-03-28 15:50 | Outpatient (REF) | payer MEDICARE, MEDICAID, SELFPAY ==
[2022-03-28 16:17] LABS: Calculated LDL 135 mg/dL (<100); Cholesterol 194 mg/dL (<200); HDL Cholesterol 43 mg/dL (40-60); Triglyceride 80 mg/dL (<150)
== END 2022-03-28 15:51 | disposition home or self-care (01) ==
LOC: NCHCN 15:50
PROVIDERS: PCP Internal Medicine; Visit Provider Internal Medicine
DX: Z82.49 Family history of ischemic heart disease and other diseases of the circulatory system (principal)
CPT/HCPCS: 80061

== ENCOUNTER 2022-08-27 17:48 | Outpatient (REF) | payer MEDICARE, MEDICAID, SELFPAY ==
[2022-09-02 09:24] LABS: Amphetamine Negative ng/mL (Cutoff: 25); Amphetamines Interpretation Negative.; MDA (Ecstasy Metabolite) Negative ng/mL (Cutoff: 25); MDMA (Ecstasy) Negative ng/mL (Cutoff: 25); Methamphetamine Negative ng/mL (Cutoff: 25); Phentermine Negative ng/mL (Cutoff: 25); Pseudoephedrine/Ephedrine Negative ng/mL (Cutoff: 25)
== END 2022-08-27 17:49 | disposition home or self-care (01) ==
LOC: NCHCN 17:48
PROVIDERS: PCP Internal Medicine; Visit Provider Internal Medicine
DX: Z51.81 Encounter for therapeutic drug level monitoring (principal); F11.11 Opioid abuse, in remission
CPT/HCPCS: 80324

== ENCOUNTER 2022-11-28 12:48 | Outpatient (REF) | payer MEDICARE, MEDICAID, SELFPAY ==
[2022-12-02 06:48] LABS: Amphetamine Negative ng/mL (Cutoff: 25); Amphetamines Interpretation Negative.; MDA (Ecstasy Metabolite) Negative ng/mL (Cutoff: 25); MDMA (Ecstasy) Negative ng/mL (Cutoff: 25); Methamphetamine Negative ng/mL (Cutoff: 25); Phentermine Negative ng/mL (Cutoff: 25); Pseudoephedrine/Ephedrine Negative ng/mL (Cutoff: 25)
== END 2022-11-28 12:49 | disposition home or self-care (01) ==
LOC: NCHCN 12:48
PROVIDERS: PCP Internal Medicine; Visit Provider Internal Medicine
DX: F11.11 Opioid abuse, in remission (principal); F90.9 Attention-deficit hyperactivity disorder, unspecified type
CPT/HCPCS: 80324

== ENCOUNTER 2023-02-11 20:33 | Outpatient (REF) | payer MEDICARE, MEDICAID, SELFPAY ==
[2023-02-20 07:43] LABS: Methylphenidate 52 ng/mL (Cutoff: 10); Ritalinic Acid 2423 ng/mL (Cutoff: 50)
== END 2023-02-11 20:34 | disposition home or self-care (01) ==
LOC: NCHCN 20:33
PROVIDERS: PCP Internal Medicine; Visit Provider Internal Medicine
DX: F90.9 Attention-deficit hyperactivity disorder, unspecified type (principal); J06.9 Acute upper respiratory infection, unspecified; Z72.0 Tobacco use
CPT/HCPCS: 80360

== ENCOUNTER → 2023-05-28 02:38 | Outpatient (CLI) | payer MEDICARE, MEDICAID, SELFPAY ==
--- NOTE | 2023-05-28 12:50 | DI.US_ITS ---
Exam(s) US SCROTUM EXAM: US SCROTUM CLINICAL HISTORY: EPIDIDYMAL CYST VS THROMBOSED VEIN,N50.3. TECHNIQUE: Scrotal ultrasound performed using grayscale, color-flow and spectral Doppler analysis. COMPARISON: No exams were available for comparison FINDINGS: RIGHT TESTICLE: cm Echogenicity: Normal. Contour: Smooth. Mass: None seen. Microlithiasis: None. Hydrocele: None. Varicocele: None. Focal area of thrombosed testicular vein extending over approximate 4.5 centimeter length. Hernia: No peristalsing bowel loop identified. Epididymis: 5 millimeter cyst and epididymal head. Scrotum: Normal. LEFT TESTICLE: 6.2 x 2.7 x 4.5 cm Echogenicity: Normal. Contour: Smooth. Mass: None seen. Microlithiasis: None. Hydrocele: None. Varicocele: None. Hernia: No peristalsing bowel loop identified. Epididymis: Normal. Scrotum: Normal. DOPPLER: Color: Symmetric and uniform, no hyperemia. Duplex: Bilateral testicular arterial waveforms visualized. IMPRESSION: Normal appearing bilateral testicles. 5 millimeter cyst head of right epididymis. Thrombosed right testicular vein. DATA REPOSITORY:
== END ==
PROVIDERS: PCP Internal Medicine; Visit Provider Internal Medicine
DX: N50.3 Cyst of epididymis (principal); N50.1 Vascular disorders of male genital organs
CPT/HCPCS: 76870

== ENCOUNTER 2023-11-26 13:39 | Outpatient (REF) | payer MEDICARE, MEDICAID, SELFPAY ==
[2023-11-29 12:35] LABS: Methylphenidate 53 ng/mL (Cutoff: 10)
== END 2023-11-26 13:40 | disposition home or self-care (01) ==
LOC: NCHCN 13:39
PROVIDERS: PCP Internal Medicine; Visit Provider Family Medicine
DX: Z51.81 Encounter for therapeutic drug level monitoring (principal)
CPT/HCPCS: 80360

== ENCOUNTER 2024-06-08 11:49 | Outpatient (REF) | payer MEDICARE, MEDICAID, SELFPAY ==
[2024-06-11 08:44] LABS: Methylphenidate 16 ng/mL (Cutoff: 10); Ritalinic Acid 1348 ng/mL (Cutoff: 50)
== END 2024-06-08 11:50 | disposition home or self-care (01) ==
LOC: NCHCN 11:49
PROVIDERS: PCP Internal Medicine; Visit Provider Family Medicine
DX: F90.9 Attention-deficit hyperactivity disorder, unspecified type (principal); Z79.899 Other long term (current) drug therapy
CPT/HCPCS: 80360

== ENCOUNTER 2025-01-18 15:35 | Outpatient (REF) | payer MEDICARE, MEDICAID, SELFPAY | END 2025-01-18 15:36 | disposition home or self-care (01) | LOC: NCHCN 15:35 | PROVIDERS: PCP Internal Medicine; Visit Provider Family Medicine | DX: F90.9 Attention-deficit hyperactivity disorder, unspecified type (principal); Z79.899 Other long term (current) drug therapy | CPT/HCPCS: 80360 ==